=== PATIENT | male | born 1950 ===

== ENCOUNTER → 2017-09-09 | Outpatient (CLI) | payer MEDICARE, OTHER ==
--- NOTE | 2017-09-10 07:50 | RADRPT ---
EXAM DATE/TIME: 09/09/2017 12:57 CONSULTATION: 67 year old male with history of incidentally discovered 3.7 cm right lower pole renal mass on recent CT exam. CT exam from [facility] is reviewed and demonstrates a solid appearing anterior endop hytic mass in the inferior pole of the right kidney measuring 3.6 x 3.6 cm. RENAL nephrectomy score o f 7 (R1, E3, N2, A, L1). This mass would be very challenging for percutaneous ablation given size requiring at least 3 probes, and anterior endophytic location with close proximity to the ureter which would limit medial and pos terior margins with significant risk for possible collecting system/ureter injury. Additional consultation by Dr. Chavez who is in agreement with the assessment and findings. Sony Loco MD on September 10, 2017 at 7:29 Board Certified Radiologist. This report was verified electronically.
== END ==
LOC: HRAD 12:03
DX: N28.89 Other specified disorders of kidney and ureter (principal)